=== PATIENT | female | born 1995 | race Caucasian/White ===

== ENCOUNTER 2023-10-06 08:00 | Outpatient (CLI) | payer OTHER ==
[2023-10-06 17:06] LABS: BILIRUBIN,URINE NEGATIVE (NEGATIVE); GLUCOSE, URINE (UA) NEGATIVE (NEGATIVE); KETONES,URINE (UA) NEGATIVE (NEGATIVE); LEUKOCYTE ESTERASE, URINE NEGATIVE (NEGATIVE); NITRITE,URINE NEGATIVE (NEGATIVE); OCCULT BLOOD,URINE NEGATIVE (NEGATIVE); PROTEIN,URINE NEGATIVE (NEGATIVE); UROBILINOGEN,URINE 0.2 (NORMAL) E.U./dL (NORMAL)
[2023-10-06 17:15] LABS: AMORPHOUS SEDIMENT,UR Moderate /LPF; BACTERIA,URINE Moderate /HPF (None Seen); CLARITY,URINE HAZY (CLEAR); RBC,URINE None Seen /HPF (0-5); SQUAMOUS EPITHELIAL CELL,UR FEW Squamous (<= Few); WBC,URINE 0-3 /HPF (0-5)
== END 2023-10-06 23:59 | disposition home or self-care (01) ==
LOC: LAB.WC 08:00
PROVIDERS: ATTEND Obstetrics & Gynecology
DX: Z34.90 Encounter for supervision of normal pregnancy, unspecified, unspecified trimester (principal)
CPT/HCPCS: 81001; 87086

== ENCOUNTER 2023-10-09 15:27 | Outpatient (CLI) | payer OTHER ==
[2023-10-09 17:44] LABS: BASOPHILS % (AUTO) 0.4 %; EOSINOPHILS # (AUTO) 0.3 10^3/uL (0.0-0.7); EOSINOPHILS % (AUTO) 3.9 %; HCT - HEMATOCRIT 40.3 % (37.0-47.0); HGB - HEMOGLOBIN 13.5 g/dL (12.0-16.0); LYMPHOCYTES % (AUTO) 23.7 %; MEAN CORPUSCULAR HEMOGLOBIN 29.5 pg (27.0-31.0); MEAN CORPUSCULAR HGB CONC 33.5 g/dL (32.0-36.0); MEAN PLATELET VOLUME 10.5 fL (7.9-10.8); MONOCYTES # (AUTO) 0.4 10^3/uL (0.0-1.0); MONOCYTES % (AUTO) 4.7 %; NEUTROPHILS # (AUTO) 5.8 10^3/uL (1.5-6.6); NEUTROPHILS % (AUTO) 67.1 %; PLT - PLATELET COUNT 220 10^3/uL (130-450); RED BLOOD COUNT 4.58 10^6/uL (4.20-5.40); RED CELL DISTRIBUTION WIDTH 12.3 % (12.0-15.0); WHITE BLOOD COUNT 8.6 x10^3/uL (4.8-10.8)
[2023-10-11 04:08] LABS: HBsAG SCREEN Negative (Negative); RPR Non Reactive (Non Reactive)
[2023-10-11 09:08] LABS: HIV SCREEN 4TH GENERATION Non Reactive (Non Reactive)
[2023-10-11 11:08] LABS: HCV AB Non Reactive (Non Reactive)
[2023-10-12 14:08] LABS: VARICELLA-ZOSTER AB IGG 289 index (Immune >165)
== END 2023-10-09 15:28 | disposition home or self-care (01) ==
LOC: LAB.N 15:27
PROVIDERS: ATTEND Obstetrics & Gynecology
DX: Z34.90 Encounter for supervision of normal pregnancy, unspecified, unspecified trimester (principal)
CPT/HCPCS: 36415; 85025; 86592; 86762; 86787; 86803; 86850; 86900; 86901; 87340; 87389

== ENCOUNTER 2023-10-11 12:32 | Outpatient (CLI) | payer OTHER ==
--- NOTE | 2023-10-12 11:03 | Ultrasound Report ---
PROCEDURE: OB 1st Trimester INDICATIONS: POSITIVE TEST OUTSIDE/PRIOR DATING DATA: Last menstrual period (LMP): 07/17/2023. LMP-based estimated date of delivery (JAVIER): 04/22/2024. First dating scan (date and location): 10/11/2023, [facility]. TECHNIQUE: Real-time scanning was performed of the fetus and maternal pelvic organs, with image documentation. COMPARISON: None. FINDINGS: There is a dichorionic diamniotic intrauterine gestation. Fetus A Position: Left lateral Heart rate: 158 bpm. Mean gestational sac diameter: 5.40 cm, 12 weeks 2 days Elfers-rump length: 5.61 cm, 12 weeks 1 day Estimated due date based on current scan: April 23, 2024 Fetus A Position: Right lateral Heart rate: 153 bpm. Mean gestational sac diameter: 5.57 cm, 12 weeks 4 days Elfers-rump length: 5.72 cm, 12 weeks and 2 days Estimated due date based on current scan: April 22, 2024 Placenta: Posterior Other: No perigestational fluid collection. Cervix: Closed Measurement variability in dating: +/- 4 weeks by LMP, +/- 7 days by mean sac diameter (use before 6 weeks gestation if crown-rump length not able to be measured), +/- 5 days by crown-rump length (6-12 weeks gestation). Maternal organs: Ovaries are not well seen. IMPRESSION: 1.There is a dichorionic diamniotic intrauterine gestation with 12 weeks and 2 days gestation and est imated due date of April 22, 2024. 2.Bilateral ovaries are not well seen. Reviewed by: Janelle Medina MD on 10/12/2023 11:02 AM PST Approved by: Janelle Medina MD on 10/12/2023 11:02 AM PST Station ID: [id number]
== END 2023-10-11 12:33 | disposition home or self-care (01) ==
LOC: DI 12:32
PROVIDERS: ATTEND Obstetrics & Gynecology
DX: O30.041 Twin pregnancy, dichorionic/diamniotic, first trimester (principal); Z3A.12 12 weeks gestation of pregnancy

== ENCOUNTER 2023-10-14 08:00 | Outpatient (CLI) | payer OTHER ==
[2023-10-14 22:42] LABS: CHLAMYDIA TRACHOMATIS DNA NEGATIVE (NEGATIVE); NEISSERIA GONORRHOEAE DNA NEGATIVE (NEGATIVE); TRICHOMONAS VAGINALIS DNA NEGATIVE (NEGATIVE)
== END 2023-10-14 23:59 | disposition home or self-care (01) ==
LOC: LAB.WC 08:00
PROVIDERS: ATTEND Obstetrics & Gynecology
DX: Z11.3 Encounter for screening for infections with a predominantly sexual mode of transmission (principal)
CPT/HCPCS: 87491; 87591; 87661

== ENCOUNTER 2023-12-08 15:41 | Outpatient (CLI) | payer OTHER | END 2023-12-08 15:42 | disposition home or self-care (01) | LOC: LAB.N 15:41 | PROVIDERS: ATTEND Obstetrics & Gynecology | DX: O09.92 Supervision of high risk pregnancy, unspecified, second trimester (principal); O30.009 Twin pregnancy, unspecified number of placenta and unspecified number of amniotic sacs, unspecified trimester | CPT/HCPCS: 36415; 82950 ==

== ENCOUNTER 2023-12-10 15:59 | Outpatient (CLI) | payer OTHER ==
--- NOTE | 2023-12-11 09:36 | Ultrasound Report ---
PROCEDURE: OB Anatomy Scan INDICATIONS: SUPERVISION OF OUTSIDE/PRIOR DATING DATA: Last menstrual period (LMP): 07/17/2023. LMP-based estimated date of delivery (JAVIER): 04/22/2024. First dating scan (date and location): 10/11/2023. Estimated date of delivery (JAVIER) from first dating scan: 04/22/2024. The below data below was generated using the working JAVIER of 04/22/2024 TECHNIQUE: Real-time scanning was performed of the fetus, with image documentation and biometric measurements. Endovaginal scanning: Not performed. COMPARISON: None. FINDINGS: General: Diamniotic dichorionic viable twin Presentation: Fetus is vertex on maternal left, presenting. Fetus B is vertex, maternal right. Placenta: Placenta is posterior. Placenta B is posterior. Amniotic fluid index: Fetus a 11.4 cm with largest pocket 3.8 cm. Fetus B 13.0 cm, largest pocket 3. 5 cm. heart rate: Fetus A 136 bpm, fetus B 136-143 beats per minute. Maternal cervical canal: Closed and 4.2 cm long; normal length is 2.5 cm or more. Fetus A: biometrics: Biparietal diameter: 4.8 cm, 20 weeks 4 days Head circumference: 19.2 cm, 21 weeks 3 days Abdominal circumference: 15.8 cm, 21 weeks 0 days Femur length: 3.3 cm, 20 weeks 3 days Estimated gestational age from initial scan: 20 weeks 6 days Composite gestational age from present scan: 20 weeks 3 days Estimated weight and percentile: 377 g, 41st percentile Measurement variability in biometric dating: +/- 10 days from 12-20 weeks gestation, +/- 2 weeks from 20-30 weeks gestation, +/- 3 weeks at 30 weeks gestation or later. Anatomic survey: Neuro: Ventricles are normal at less than 10 mm. Cisterna magna is normal at 3-11 mm. Cerebellum i s normal in size and morphology. Nuchal skin fold: Normal at less than 6 mm between 14 and 20 weeks gestational age. Face: Nose and lips, facial profile were not well seen due to position. Spine: No evidence for spina bifida. Heart: 4-chambered heart is present, with normal ventricular outflow tracts. Diaphragm: Diaphragm is intact. Stomach: Left-sided stomach is present. Kidneys: No hydronephrosis. Normal is less than 5 mm in 2nd trimester, less than 7 mm in 3rd trimester. Cord: 3 vessel cord has orthotopic insertion. Bladder: Normal in size. Extremities: All 4 extremities are visualized. Fetus B: biometrics: Biparietal diameter: 4.7 cm, 20 weeks 2 days Head circumference: 18.0 cm, 20 weeks 3 days Abdominal circumference: 15.9 cm, 21 weeks 0 days Femur length: 3.6 cm, 21 weeks 3 days Estimated gestational age from initial scan: 20 weeks 6 days Composite gestational age from present scan: 20 weeks 4 days Estimated weight and percentile: 396 g, 56 percentile Measurement variability in biometric dating: +/- 10 days from 12-20 weeks gestation, +/- 2 weeks from 20-30 weeks gestation, +/- 3 weeks at 30 weeks gestation or later. Anatomic survey: Neuro: Ventricles are normal at less than 10 mm. Cisterna magna is normal at 3-11 mm. Cerebellum i s normal in size and morphology. Nuchal skin fold: Normal at less than 6 mm between 14 and 20 weeks gestational age. Face: Nose and lips, facial profile are normal. Spine: No evidence for spina bifida. Heart: 4-chambered heart is present, with normal ventricular outflow tracts. Diaphragm: Diaphragm is intact. Stomach: Left-sided stomach is present. Kidneys: No hydronephrosis. Normal is less than 5 mm in 2nd trimester, less than 7 mm in 3rd trimester. Cord: 3 vessel cord has orthotopic insertion. Bladder: Normal in size. Extremities: All 4 extremities are visualized. IMPRESSION: Viable diamniotic dizygotic twin . Fetus A: Symmetric growth, and normal amniotic fluid volume. Fetus B: Symmetric growth and normal amniotic fluid volume. Fetus A: Facial features were not well seen due to position. Recommend follow-up. All other janeen shilo appears normal. Fetus B: Normal anatomy. Reviewed by: Mell Arreguin MD on 12/11/2023 9:35 AM PDT Approved by: Mell Arreguin MD on 12/11/2023 9:35 AM PDT Station ID: [id number]
== END 2023-12-10 16:00 | disposition home or self-care (01) ==
LOC: DI 15:59
PROVIDERS: ATTEND Obstetrics & Gynecology
DX: O09.92 Supervision of high risk pregnancy, unspecified, second trimester (principal); O30.042 Twin pregnancy, dichorionic/diamniotic, second trimester

== ENCOUNTER 2024-01-27 14:16 | Outpatient (CLI) | payer OTHER | END 2024-01-27 14:17 | disposition home or self-care (01) | LOC: LAB.N 14:16 | PROVIDERS: ATTEND Obstetrics & Gynecology | DX: O09.92 Supervision of high risk pregnancy, unspecified, second trimester (principal); Z36.89 Encounter for other specified antenatal screening | CPT/HCPCS: 36415; 82950 ==

== ENCOUNTER 2024-02-01 16:02 | Outpatient (CLI) | payer OTHER ==
--- NOTE | 2024-02-02 15:29 | Ultrasound Report ---
PROCEDURE: OB Follow up INDICATIONS: SUPERVISION OF , TWINS OUTSIDE/PRIOR DATING DATA: Last menstrual period (LMP): 07/17/2023. LMP-based estimated date of delivery (JAVIER): 04/22/2024. First dating scan (date and location): 10/11/2023. Estimated date of delivery (JAVIER) from first dating scan: 04/22/2024. The below data below was generated using the clinical/ultrasound JAVIER of 04/22/2024 TECHNIQUE: Real-time scanning was performed of the fetus, with image documentation and biometric measurements. Endovaginal scanning: Not performed. COMPARISON: OB ultrasound 12/10/2023, 10/11/2023 FINDINGS: Dichorionic diamniotic twin identified. Cervical length was not evaluated. Fetus A: General: A living intrauterine gestation is present. Presentation: Vertex Placenta: Placental position is posterior, without previa. Amniotic fluid index: 10.3 cm, 9th percentile for gestational age. Largest pocket 5 cm. heart rate: 133 beats per minute. biometrics: Biparietal diameter: 7.3 cm 29 weeks 2 days 68th percentile Head circumference: 27.7 cm 30 weeks 0 days 75th percentile Abdominal circumference: 24.7 cm 28 weeks 6 days 58 percentile Femur length: 5.4 cm 28 weeks 4 days 38th percentile Estimated gestational age from initial scan: 28 weeks 3 days Composite gestational age from present scan: 29 weeks 2 days Estimated weight and percentile: 1311 g 57th percentile FetusB: General: A living intrauterine gestation is present. Presentation: Vertex Placenta: Placental position is posterior, without previa. Amniotic fluid index: 16.4 cm, 64th percentile for gestational age. Largest pocket 5.4 cm heart rate: 152 beats per minute. biometrics: Biparietal diameter: 7.0 cm 28 weeks 0 days 23rd percentile Head circumference: 26.5 cm 28 weeks 6 days 29th percentile Abdominal circumference: 23.3 cm 27 weeks 4 days 21st percentile Femur length: 5.5 cm 29 weeks 1 day 58th percentile Estimated gestational age from initial scan: 28 weeks 3 days Composite gestational age from present scan: 28 weeks 3 days Estimated weight and percentile: 1206 g 32nd percentile Other: Not applicable. IMPRESSION: Dichorionic diamniotic twin . Gestational age of fetus A is 29 weeks 2 days compared to 28 weeks 3 days of fetus B. Mild asymmetric FAIZA measuring 10.3 cm for fetus A and 16.4 cm of fetus B as above. Continued interval follow-up noting 9th percentile for fetus A. Reviewed by: Juany Ma MD on 02/02/2024 3:28 PM PDT Approved by: Juany Ma MD on 02/02/2024 3:28 PM PDT Station ID: [id number]
== END 2024-02-01 16:03 | disposition home or self-care (01) ==
LOC: DI 16:02
PROVIDERS: ATTEND Obstetrics & Gynecology
DX: O09.93 Supervision of high risk pregnancy, unspecified, third trimester (principal); O30.043 Twin pregnancy, dichorionic/diamniotic, third trimester; Z3A.29 29 weeks gestation of pregnancy

== ENCOUNTER 2024-02-09 16:11 | Outpatient (CLI) | payer OTHER ==
[2024-02-09 21:22] LABS: HCT - HEMATOCRIT 36.3 % (37.0-47.0); HGB - HEMOGLOBIN 12.1 g/dL (12.0-16.0); MEAN CORPUSCULAR HEMOGLOBIN 30.2 pg (27.0-31.0); MEAN CORPUSCULAR HGB CONC 33.3 g/dL (32.0-36.0); MEAN CORPUSCULAR VOLUME 90.5 fL (81.0-99.0); MEAN PLATELET VOLUME 10.5 fL (7.9-10.8); RED BLOOD COUNT 4.01 10^6/uL (4.20-5.40); RED CELL DISTRIBUTION WIDTH 12.9 % (12.0-15.0); WHITE BLOOD COUNT 9.2 x10^3/uL (4.8-10.8)
[2024-02-09 21:41] LABS: CREATININE,URINE 185.9 mg/dL; PROTEIN/CREATININE RATIO,URINE 0.1 (<=0.2)
[2024-02-09 21:43] LABS: ALBUMIN 3.4 g/dL (3.2-5.5); BILIRUBIN,TOTAL 0.3 mg/dL (0.2-1.0); CREATININE 0.6 mg/dL (0.6-1.3); POTASSIUM 3.7 mmol/L (3.5-4.5); TOTAL PROTEIN 6.7 g/dL (6.4-8.9)
== END 2024-02-09 16:12 | disposition home or self-care (01) ==
LOC: LAB.N 16:11
PROVIDERS: ATTEND Obstetrics & Gynecology
DX: O09.92 Supervision of high risk pregnancy, unspecified, second trimester (principal); O30.042 Twin pregnancy, dichorionic/diamniotic, second trimester
CPT/HCPCS: 36415; 80053; 82570; 84156; 85027; 86592

== ENCOUNTER 2024-02-26 19:32 | Outpatient (CLI) | payer OTHER ==
--- NOTE | 2024-02-27 13:24 | Ultrasound Report ---
PROCEDURE: OB Follow up INDICATIONS: TWIN OUTSIDE/PRIOR DATING DATA: Last menstrual period (LMP): 07/17/2023. LMP-based estimated date of delivery (JAVIER): 04/22/2024. The below data below was generated using the clinical JAVIER of 2023 TECHNIQUE: Real-time scanning was performed of the fetuses, with image documentation and biometric measurements. Endovaginal scanning: Performed COMPARISON: 02/01/2024, 12/10/2023 FINDINGS: General: An intrauterine dichorionic-diamniotic twin is present, as evidenced by separate placentas, differing sexes, or an intervening membrane of greater than 2 mm. Cervix not well v isualized. FETUS A: Fetus is in vertex presentation. FAIZA: 12.4 cm. Placental position is posterior, without previa. heart rate: 124 beats per minute. biometrics: Biparietal diameter: 8.5 cm, 34 weeks 2 days, 94th percentile Head circumference: 31.1 cm, 34 weeks 5 days, 84th percentile Abdominal circumference: 26.95 cm, 31 weeks 0 days, 27th percentile Femur length: 5.96 cm, 31 weeks 0 days, 15 percentile. Estimated gestational age from initial scan: 32 weeks 0 days Composite gestational age from present scan: 32 weeks 5 days Estimated weight and percentile: 1811.5 g, 28th percentile Measurement variability in biometric dating: +/- 10 days from 12-20 weeks gestation, +/- 2 weeks from 20-30 weeks gestation, +/- 3 weeks at 30 weeks gestation or later. FETUS B: Fetus is in vertex presentation. FAIZA: 13.6 cm Placental position is posterior without previa. heart rate: 145 beats per minute. biometrics: Biparietal diameter: 8.0 cm, 32 weeks 1 day, 44 percentile Head circumference: 29.9 cm, 33 weeks 1 day, 42nd percentile Abdominal circumference: 26.97 cm, 31 weeks 0 days, 22nd percentile Femur length: 6.46 cm, 33 weeks 2 days, 74th percentile Estimated gestational age from initial scan: 32 weeks 0 days Composite gestational age from present scan: 32 weeks 3 days Estimated weight and percentile: 1894.8 g, 41st percentile Measurement variability in biometric dating: +/- 10 days from 12-20 weeks gestation, +/- 2 weeks from 20-30 weeks gestation, +/- 3 weeks at 30 weeks gestation or later. IMPRESSION: Living dichorionic, diamniotic twin gestation at 32 weeks 0 days, JAVIER of 04/22/2024. Normal FAIZA. Biometrics as above. Reviewed by: Victor Manuel Pena MD on 02/27/2024 1:22 PM PDT Approved by: Victor Manuel Pena MD on 02/27/2024 1:22 PM PDT Station ID: [id number]
== END 2024-02-26 19:33 | disposition home or self-care (01) ==
LOC: DI 19:32
PROVIDERS: ATTEND Obstetrics & Gynecology
DX: O30.043 Twin pregnancy, dichorionic/diamniotic, third trimester (principal); Z3A.32 32 weeks gestation of pregnancy

== ENCOUNTER 2024-03-15 17:05 | Outpatient (CLI) | payer OTHER ==
--- NOTE | 2024-03-16 11:25 | Ultrasound Report ---
PROCEDURE: OB Follow up INDICATIONS: TWIN OUTSIDE/PRIOR DATING DATA: Last menstrual period (LMP): 07/17/2023. LMP-based estimated date of delivery (JAVIER): 04/22/2024. First dating scan (date and location): 10/11/2023. Estimated date of delivery (JAVIER) from first dating scan: 04/22/2024. TECHNIQUE: Real-time scanning was performed of the fetuses, with image documentation and biometric measurements. Endovaginal scanning: Not performed COMPARISON: OB ultrasound 02/26/2024 FINDINGS: General: An intrauterine dichorionic-diamniotic twin is present, as evidenced by separate placentas, differing sexes, or an intervening membrane of greater than 2 mm. Composite amniotic fluid index: 14.7 cm. Maternal cervical canal: Not evaluated FETUS A: Fetus is in vertex presentation. Largest amniotic fluid pocket: 4.5 cm, normal is 2-8 cm. Placental position is posterior, without previa. heart rate: 137 beats per minute. biometrics: Biparietal diameter: 8.9 cm, 36 weeks 1 day, 88th percentile Head circumference: 32.7 cm, 37 weeks 0 days, 77th percentile Abdominal circumference: 29.0 cm, 33 weeks 0 days, 15th percentile Femur length: 6.4 cm, 33 weeks 1 day, 12th percentile Estimated gestational age from initial scan: 34 weeks 4 days Composite gestational age from present scan: 34 weeks 6 days Estimated weight and percentile: 2269 g, 23rd percentile Measurement variability in biometric dating: +/- 10 days from 12-20 weeks gestation, +/- 2 weeks from 20-30 weeks gestation, +/- 3 weeks at 30 weeks gestation or later. FETUS B: Fetus is in vertex presentation. Largest amniotic fluid pocket: 7.0 cm, normal is 2-8 cm. Placental position is posterior without previa. heart rate: 157 beats per minute. biometrics: Biparietal diameter: 8.3 cm, 33 weeks 3 days, 18th percentile Head circumference: 31.1 cm, 34 weeks 6 days, 21st percentile Abdominal circumference: 29.2 cm, 33 weeks 1 day, 18th percentile Femur length: 6.8 cm, 34 weeks 6 days, 49th percentile Estimated gestational age from initial scan: 34 weeks 4 days. Composite gestational age from present scan: 34 weeks 1 day Estimated weight and percentile: 2292 g, 26th percentile Measurement variability in biometric dating: +/- 10 days from 12-20 weeks gestation, +/- 2 weeks from 20-30 weeks gestation, +/- 3 weeks at 30 weeks gestation or later. IMPRESSION: 1.Living dichorionic diamniotic twin at 34 weeks 4 days gestation. 2.Appropriate interval growth. 3.Normal amniotic fluid index. Reviewed by: Bartolo Madrid MD on 03/16/2024 11:24 AM PDT Approved by: Bartolo Madrid MD on 03/16/2024 11:24 AM PDT Station ID: [id number]
== END 2024-03-15 17:06 | disposition home or self-care (01) ==
LOC: DI 17:05
PROVIDERS: ATTEND Obstetrics & Gynecology
DX: O30.043 Twin pregnancy, dichorionic/diamniotic, third trimester (principal); Z3A.34 34 weeks gestation of pregnancy

== ENCOUNTER 2024-03-18 08:00 | Outpatient (CLI) | payer OTHER | END 2024-03-18 23:55 | disposition home or self-care (01) | LOC: LAB.WC 08:00 | PROVIDERS: ATTEND Obstetrics & Gynecology | DX: Z36.85 Encounter for antenatal screening for Streptococcus B (principal) | CPT/HCPCS: 87797 ==

== ENCOUNTER 2024-04-04 14:04 | Outpatient (CLI) | payer OTHER ==
--- NOTE | 2024-04-04 18:31 | Ultrasound Report ---
PROCEDURE: OB Follow up INDICATIONS: TWIN OUTSIDE/PRIOR DATING DATA: Last menstrual period (LMP): 07/17/2023. LMP-based estimated date of delivery (JAVIER): 04/22/2024. First dating scan (date and location): 10/11/2023. Estimated date of delivery (JAVIER) from first dating scan: 04/22/2024. The below data below was generated using the ultrasound JAVIER of 324 TECHNIQUE: Real-time scanning was performed of the fetus, with image documentation and biometric measurements. Endovaginal scanning: Not performed. COMPARISON: Several prior studies, the most recent from 03/15/2024 FINDINGS: General: A living twin dichorionic diamniotic intrauterine gestation is present. Maternal cervical canal: Not well seen Fetus A: Presentation: Vertex Placenta: Placental position is posterior, without previa. Largest amniotic fluid pocket 3.3 cm, within normal limits for gestational age. heart rate: 129 beats per minute. biometrics: Biparietal diameter: 9.3 cm, 37 weeks 5 days, 77th percentile Head circumference: 32.6 cm, 37 weeks 0 days, 18th percentile Abdominal circumference: 32.8 cm, 36 weeks 5 days, 45th percentile Femur length: 7.0 cm, 36 weeks 0 days, 18th percentile Estimated gestational age from initial scan: 37 weeks 3 days Composite gestational age from present scan: 36 weeks 6 days Estimated weight and percentile: 3009 g, 39th percentile Measurement variability in biometric dating: +/- 10 days from 12-20 weeks gestation, +/- 2 weeks from 20-30 weeks gestation, +/- 3 weeks at 30 weeks gestation or more. Fetus B: Presentation: Vertex Placenta: Placental position is posterior, without previa. Largest amniotic fluid pocket 2.7 cm, at the low end of normal for gestational age. heart rate: 145 beats per minute. biometrics: Biparietal diameter: 8.5 cm, 34 weeks 1 day, 2nd percentile Head circumference: 31.4 cm, 35 weeks 2 days, 2nd percentile Abdominal circumference: 32.6 cm, 36 weeks 0 days, 25th percentile Femur length: 7.1 cm, 36 weeks 4 days, 29th percentile Estimated gestational age from initial scan: 37 weeks 3 days Composite gestational age from present scan: 35 weeks 4 days Estimated weight and percentile: 2783 g, 20th percentile Measurement variability in biometric dating: +/- 10 days from 12-20 weeks gestation, +/- 2 weeks from 20-30 weeks gestation, +/- 3 weeks at 30 weeks gestation or more. Other: Not applicable. IMPRESSION: Living twin intrauterine . Estimated weight of fetus A 39 percentile. Estimated weight of fetus B 20th percentile. Composite amniotic fluid volume within normal limits. Reviewed by: Mell Arreguin MD on 04/04/2024 6:30 PM PDT Approved by: Mell Arreguin MD on 04/04/2024 6:30 PM PDT Station ID: [id number]
--- NOTE | 2024-04-04 18:33 | Ultrasound Report ---
PROCEDURE: OB Follow up INDICATIONS: Twin OUTSIDE/PRIOR DATING DATA: Last menstrual period (LMP): . LMP-based estimated date of delivery (JAVIER): . First dating scan (date and location): . Estimated date of delivery (JAVIER) from first dating scan: . The below data below was generated using the JAVIER of TECHNIQUE: Real-time scanning was performed of the fetus, with image documentation and biometric measurements. Endovaginal scanning: Not performed. COMPARISON: None. FINDINGS: General: A living twin dichorionic diamniotic intrauterine gestation is present. Maternal cervical canal: Not well seen Fetus A: Presentation: Vertex Placenta: Placental position is posterior, without previa. Largest amniotic fluid pocket 3.3 cm, within normal limits for gestational age. heart rate: 129 beats per minute. biometrics: Biparietal diameter: 9.3 cm, 37 weeks 5 days, 77th percentile Head circumference: 32.6 cm, 37 weeks 0 days, 18th percentile Abdominal circumference: 32.8 cm, 36 weeks 5 days, 45th percentile Femur length: 7.0 cm, 36 weeks 0 days, 18th percentile Estimated gestational age from initial scan: 37 weeks 3 days Composite gestational age from present scan: 36 weeks 6 days Estimated weight and percentile: 3009 g, 39th percentile Measurement variability in biometric dating: +/- 10 days from 12-20 weeks gestation, +/- 2 weeks from 20-30 weeks gestation, +/- 3 weeks at 30 weeks gestation or more. Fetus B: Presentation: Vertex Placenta: Placental position is posterior, without previa. Largest amniotic fluid pocket 2.7 cm, at the low end of normal for gestational age. heart rate: 145 beats per minute. biometrics: Biparietal diameter: 8.5 cm, 34 weeks 1 day, 2nd percentile Head circumference: 31.4 cm, 35 weeks 2 days, 2nd percentile Abdominal circumference: 32.6 cm, 36 weeks 0 days, 25th percentile Femur length: 7.1 cm, 36 weeks 4 days, 29th percentile Estimated gestational age from initial scan: 37 weeks 3 days Composite gestational age from present scan: 35 weeks 4 days Estimated weight and percentile: 2783 g, 20th percentile Measurement variability in biometric dating: +/- 10 days from 12-20 weeks gestation, +/- 2 weeks from 20-30 weeks gestation, +/- 3 weeks at 30 weeks gestation or more. Other: Not applicable. IMPRESSION: Living twin intrauterine . Estimated weight of fetus A 39 percentile. Estimated weight of fetus B 20th percentile. Composite amniotic fluid volume within normal limits. Reviewed by: Mell Arreguin MD on 04/04/2024 6:31 PM PDT Approved by: Mell Arreguin MD on 04/04/2024 6:31 PM PDT Station ID: [id number]
== END 2024-04-04 14:05 | disposition home or self-care (01) ==
LOC: DI 14:04
PROVIDERS: ATTEND Obstetrics & Gynecology
DX: O30.003 Twin pregnancy, unspecified number of placenta and unspecified number of amniotic sacs, third trimester (principal); Z3A.35 35 weeks gestation of pregnancy; Z3A.36 36 weeks gestation of pregnancy

== ENCOUNTER 2024-04-11 07:42 | Inpatient (IN) | payer OTHER ==
[2024-04-11] MEDS ORDERED: TERBUTALINE 1 MG/ML VIAL SUBQ PRN (09:03)
[2024-04-11] MEDS ORDERED: miSOPROStoL 200 MCG TABLET PR PRN (09:03)
[2024-04-11] MEDS ORDERED: SODIUM CHLORIDE FLUSH 0.9% 10 ML SYRINGE IVP PRN (09:03)
[2024-04-11] MEDS ORDERED: NIFEdipine 10 MG CAPSULE PO PRN (09:03)
[2024-04-11] MEDS ORDERED: ONDANSETRON ODT 4 MG TABLET PO PRN (09:03)
[2024-04-11] MEDS ORDERED: CALCIUM CARBONATE CHEW 500 MG TABLET PO PRN (09:03)
[2024-04-11] MEDS ORDERED: LACTATED RINGERS 1,000 ML IV PRN (09:03)
[2024-04-11] MEDS ORDERED: lidocaine 1% 20 ML MDV ID PRN (09:03)
[2024-04-11] MEDS ORDERED: OXYTOCIN 10 UNIT/ML VIAL IM PRN (09:03)
[2024-04-11] MEDS ORDERED: hydrALAZINE INJ 20 MG/ML VIAL IVP PRN ×2 (09:03)
[2024-04-11] MEDS ORDERED: AMPICILLIN 2 GM in SODIUM CHLORIDE 0.9% MINIBAG 100 ML IV ONE (09:03)
[2024-04-11] MEDS ORDERED: LABETALOL 20 MG/4 ML SYRINGE IVP PRN ×3 (09:03)
[2024-04-11 09:12] LABS: BASOPHILS # (AUTO) 0.1 10^3/uL (0.0-0.1); BASOPHILS % (AUTO) 0.7 %; EOSINOPHILS # (AUTO) 0.1 10^3/uL (0.0-0.7); EOSINOPHILS % (AUTO) 1.4 %; HCT - HEMATOCRIT 33.1 % (37.0-47.0); HGB - HEMOGLOBIN 10.7 g/dL (12.0-16.0); LYMPHOCYTES # (AUTO) 1.6 10^3/uL (1.5-3.5); LYMPHOCYTES % (AUTO) 21.2 %; MEAN CORPUSCULAR HEMOGLOBIN 27.4 pg (27.0-31.0); MEAN CORPUSCULAR HGB CONC 32.3 g/dL (32.0-36.0); MEAN CORPUSCULAR VOLUME 84.7 fL (81.0-99.0); MEAN PLATELET VOLUME 12.5 fL (7.9-10.8); MONOCYTES # (AUTO) 0.5 10^3/uL (0.0-1.0); MONOCYTES % (AUTO) 6.6 %; NEUTROPHILS # (AUTO) 5.3 10^3/uL (1.5-6.6); NEUTROPHILS % (AUTO) 69.6 %; PLT - PLATELET COUNT 137 10^3/uL (130-450); RED BLOOD COUNT 3.91 10^6/uL (4.20-5.40); RED CELL DISTRIBUTION WIDTH 13.2 % (12.0-15.0); WHITE BLOOD COUNT 7.7 x10^3/uL (4.8-10.8)
[2024-04-11] MEDS: SODIUM CHLORIDE FLUSH 0.9% 10 ML SYRINGE IVP SCH (09:15)
[2024-04-11 10:08] LABS: ALBUMIN 3.2 g/dL (3.2-5.5); BILIRUBIN,TOTAL 0.3 mg/dL (0.2-1.0); CALCIUM 9.6 mg/dL (8.5-10.3); CREATININE 0.7 mg/dL (0.6-1.3); POTASSIUM 3.9 mmol/L (3.5-4.5); TOTAL PROTEIN 6.3 g/dL (6.4-8.9)
[2024-04-11] MEDS: miSOPROStoL 100 MCG TABLET VG SCH (10:09)
--- NOTE | 2024-04-11 11:15 | HISTORY & PHYSICAL EXAMINATION ---
Admit History - Smoking Status: Never smoker - Other Maternal History Other Maternal History: HPI: Makenzie is a 29yo at 38w3d presenting for induction of labor for di/di twin . She is feeling well. Having occasional jesus pat contractions, nothing regular. Denies VB, LOF. + FM. Last growth US 04/05/24: Twin A vertex 3009g, 39%tile, Twin B vertex 2783g, 20%tile. monitoring form copied from chart: LMP: 07/17/23 JAVIER by LMP: 04/22/24 US:10/11/2023 @ 12W2D c/w LMP (US 04/23/2024) Final JAVIER: 04/22/2024 PROBLEMS: DI DI twins -Counselled on increased risk of delivery, preeclampsia, delivery, growth discordance -Encouraged vitamin/mineral supplementation in -Will need surveillance at 34 weeks. Delivery by 38 weeks. -Folic acid 1mg, 2500 mg, ASA -Early 1-hour GTT normal. Repeat ordered. -Monthly Growth monthly growth scans -Most recent ultrasound on 03/15 showed baby A: 2269 g, the 23rd percentile, baby B 2292 g, 26nd percentile. HSV: Prophylaxis at 36 weeks. Prescription sent Twins (prepregnancy BMI: 26) --Weight gain: 31-50 lbs Pre- Weight:169.0 BMI: 26.56 Blood type: O+ Antibody: negative CBC: PLT 220 HCT 40.3 HGB 13.5 RUB: immune VZV:Immune HBsAg: negative HepC: N-R RPR/AB-EIA: N-R HIV: negative PAP: 11/12/22 - normal per pt GC/CT:10/14 negative HSV:genital HSV 1 Genetic testing: Flu:2022 COVID: J&J 2020, Booster 2020, Virus 03/2022 FAS: WNL Placenta: both posterior Cord: both 3VC FAIZA: both WNL EFW: A: 377g 41%ile; B: 396g 56%ile 50gm OGCT: 76 TDAP:6/5 Breast Pump:6/ RPR- Non reactive 3rd trimester H/H PLT- 12.1/36.3 plt 212 GBS: negative Delivery plan:Induction at 38 weeks if not in labor Contraception:Partner vasectomy Medical Hx: H/o genital HSV1 Surgical Hx [place] teeth RN FIRST ASSIST Hx: Social Hx: No alcohol, tobacco, drug use Family Hx: noncontributory Allergies: NKDA Meds: acyclovir, baby aspirin, famotidine, folic acid, tums, PNV PE: Gen NAD Chest non labored respirations Abd gravid, non tender Ext trace LE edema, no evidence of DVT [employer]: no visible external lesions SVE: - On presentation, 50/-2, moderate, mid position - Exam repeated at 6pm, 70/-2, cephalic Bedside US: vertex/vertex presentation monitoring: FHTs: - Twin A: 130s bpm baseline, + accel, - decel, mod variability - Twin B: 130s bpm baseline, + accel, - decel, mod variability [place]: q 1-4 min A/P: 29 yo presenting for IOL with: - dichorionic diamniotic twin - GBS neg - Rh+ - Rubella immune - Varicella immune - IOL consents were signed in clinic on 04/06/[address] Aquino - She is s/p misoprostol x 2 doses. We discussed another dose of misoprostol vs placement of cervical ripening balloon overnight, she would prefer to continue misoprostol. Will reassess before next dose. - We reviewed plan for delivery in the OR. We have discussed in detail possibilities at time of delivery if baby B is cephalic vs non-cephalic. We have discussed possible external cephalic version, internal podalic version/breech extraction in the setting that twin B in non-cephalic. She would strongly like to avoid delivery for Twin B and consents to breech extraction if necessary. - Pain management per patient request. Epidural strongly encouraged. Sunshine Rivera MD - HPI Current EDU 04/22/24 Gestation 38 Weeks and 3 Days 1 Vital Signs Temperature 98.4 F 04/11/24 08:00 Heart Rate 81 04/11/24 08:00 Respiratory Rate 20 04/11/24 08:00 Temperature 98.4 F 04/11/24 08:00 Heart Rate 81 04/11/24 08:00 Respiratory Rate 20 04/11/24 08:00 Blood Pressure O2 Saturation If not protocol: Oxygen Flow, liters/minute Meds/Allgy - Allergies Allergies/Adverse Reactions: Allergies Allergy/AdvReac Type Severity Reaction Status Date / Time No Known Drug Allergies Allergy Verified 04/11/24 07:49 Physical - Abdominal Exam Vital Signs: Temp Pulse Resp BP Pulse Ox O2 Flow Rate 98.4 F 81 20 04/11/24 08:00 04/11/24 08:00 04/11/24 08:00 Plan for Labor - Plan For Labor I expect patient to be DC'd or transferred within 96 hours.: Yes
[2024-04-11] MEDS ORDERED: AMPICILLIN 1 GM in SODIUM CHLORIDE 0.9% MINIBAG 100 ML IV SCH (14:00)
--- NOTE | 2024-04-11 22:28 | ANESTHESIA ---
Pre-Anesthesia VS, & Labs - Diagnosis [id number] presenting for IOL for twins - Procedure Placement of labbor epidural when patient desires Vital Signs: Temp Pulse Resp BP Pulse Ox O2 Flow Rate 36.8 C 77 19 139/75 H 04/11/24 15:15 04/11/24 15:15 04/11/24 15:15 04/11/24 15:15 Height: 5 ft 7 in Weight (kg): 93.621 kg Body Mass Index: 32.3 BMI Classification: Obese - NPO Other (currently not npo, will be on clears when epidural is placed) - Is Patient ?: Yes - Lab Results Current Lab Results: Laboratory Tests 04/11/24 09:45: Sodium 135, Potassium 3.9, Chloride 105, Carbon Dioxide 23, Anion Gap 7.0, BUN 12, Creatinine 0.7, Estimated GFR (MDRD) 99, Glucose 85, Calc ium 9.6, Total Bilirubin 0.3, AST 18, ALT 8 L, Alkaline Phosphatase 216 H, Total Protein 6.3 L, Albumin 3.2, Globulin 3.1, Albumin/Globulin Ratio 1.0 04/11/24 08:45: WBC 7.7, RBC 3.91 L, Hgb 10.7 L, Hct 33.1 L, MCV 84.7, MCH 27.4, MCHC 32.3, RDW 13.2, Plt Count 137, MPV 12.5 H, Neut # (Auto) 5.3, Lymph # (Auto) 1.6, [place] # (Auto) 0.5, Eos # (Auto) 0.1, Baso # (Auto) 0.1, Absolute Nucleated RBC 0.00, Nucleated RBC % 0.0 04/11/24 08:45: Blood Type O POSITIVE, Antibody Screen NEGATIVE Fish Bones: 04/11/24 08:45 04/11/24 09:45 Home Medications and Allergies Active Medications Acetaminophen (Acetaminophen 500 Mg Tablet) 1,000 mg PO Q8HR PRN PRN Reason: Mild Pain or Fever>38C(100.4F) Calcium Carbonate/Glycine (Calcium Carbonate Chew 500 Mg Tablet) 1,000 mg PO Q6HR PRN PRN Reason: Heartburn Carboprost Tromethamine (Carboprost Tromethamine 250 Mcg/Ml Vial) 250 mcg IM .ONCE PRN PRN Reason: Hemorrhage Fentanyl (Fentanyl 100 Mcg/2 Ml Vial) 50 mcg IVP Q1H PRN PRN Reason: Severe Pain (score 7-10) Hydralazine HCl (Hydralazine Inj 20 Mg/Ml Vial) 10 mg IVP .ONCE PRN; Protocol PRN Reason: SBP> or= 160 OR DBP> or= 110 Hydralazine HCl (Hydralazine Inj 20 Mg/Ml Vial) 5 - 10 mg IVP Q20M PRN; Protocol PRN Reason: SBP> or= 160 OR DBP> or= 110 Lactated Ringer's (Lr) 500 mls @ 999 mls/hr IV PRN PRN PRN Reason: Abdominal Pain Oxytocin/Sodium Chloride (Pitocin/Sodium Chloride) 500 mls @ 999 mls/hr IV PRN PRN; Protocol PRN Reason: POST- HEMORR PREVENTION Tranexamic Acid (Tranexamic 1,000 Mg/100ml-Nacl) 1,000 mg in 100 mls @ 600 mls/hr IV Q30M PRN PRN Reason: EBL >1200mL and within 3hr Labetalol HCl (Labetalol 20 Mg/4 Ml Syringe) 20 mg IVP .ONCE PRN; Protocol PRN Reason: SBP> or= 160 OR DBP> or= 110 Labetalol HCl (Labetalol 20 Mg/4 Ml Syringe) 20 - 80 mg IVP Q10M PRN; Protocol PRN Reason: SBP> or= 160 OR DBP> or= 110 Labetalol HCl (Labetalol 20 Mg/4 Ml Syringe) 20 - 40 mg IVP Q10M PRN; Protocol PRN Reason: SBP> or= 160 OR DBP> or= 110 Lidocaine HCl (Lidocaine 1% 20 Ml Mdv) 20 ml ID .ONCE PRN PRN Reason: PERINEAL REPAIR Stop: 04/14/24 09:03 Methylergonovine Maleate (Methylergonovine 0.2 Mg/Ml Vial) 0.2 mg IM .ONCE PRN PRN Reason: Hemorrhage Misoprostol (Misoprostol 200 Mcg Tablet) 600 mcg BC .ONCE PRN PRN Reason: Hemorrhage Misoprostol (Misoprostol 200 Mcg Tablet) 800 mcg AK .ONCE PRN PRN Reason: Hemorrhage Misoprostol (Misoprostol 100 Mcg Tablet) 25 mcg VG Q4H GLADIS Last Admin: 04/11/24 17:59 Dose: 25 mcg Nifedipine (Nifedipine 10 Mg Capsule) 10 - 20 mg PO Q20M PRN; Protocol PRN Reason: SBP> or= 160 OR DBP> or= 110 Ondansetron HCl (Ondansetron Odt 4 Mg Tablet) 4 mg PO Q4HR PRN PRN Reason: Nausea / Vomiting Ondansetron HCl (Ondansetron 4 Mg/2 Ml Vial) 4 mg IVP PRN PRN PRN Reason: Nausea / Vomiting Oxytocin (Oxytocin 10 Unit/Ml Vial) 10 unit IM .ONCE PRN PRN Reason: Step One if no IV access. Sodium Chloride (Sodium Chloride Flush 0.9% 10 Ml Syringe) 10 ml IVP Q8H GLADIS Sodium Chloride (Sodium Chloride Flush 0.9% 10 Ml Syringe) 10 ml IVP PRN PRN PRN Reason: NEEDED PER PROVIDER ORDERS Terbutaline Sulfate (Terbutaline 1 Mg/Ml Vial) 0.25 mg SUBQ .ONCE PRN PRN Reason: Tachystole Allergies/Adverse Reactions: Allergies Allergy/AdvReac Type Severity Reaction Status Date / Time No Known Drug Allergies Allergy Verified 04/11/24 07:49 Anes History & Medical History - Anesthetic History Anesthesia Complications: reports: No previous complications - Medical History Cardiovascular: reports: None Pulmonary: reports: None Gastrointestinal: reports: None Urinary: reports: None Neuro: reports: None Musculoskeletal: reports: None Endocrine/Autoimmune: reports: None Smoking Status: Never smoker Psychosocial: reports: No issues indicated Exam General: Alert, Oriented x3, Cooperative Dental: WNL Mouth Openin Fingerbreadth Neck Mobility: Normal Mallampati classification: II Thyromental Distance: 4-6 cm Respiratory: Lungs clear Cardiovascular: Regular rate Plan Anesthesia Type: Epidural Consent for Procedure(s) Verified and Reviewed: Yes Code Status: Attempt Resuscitation ASA classification: 1-Healthy patient Is this case an emergency?: No
[2024-04-12] MEDS: ACETAMINOPHEN 500 MG TABLET PO PRN (03:48)
[2024-04-12] MEDS: LACTATED RINGERS 1,000 ML IV SCH (08:29)
[2024-04-12] MEDS: OXYTOCIN/SODIUM CHLORIDE 500 ML IV SCH (08:29)
[2024-04-12] MEDS: CYCLOBENZAPRINE 10 MG TABLET PO PRN (08:47)
--- NOTE | 2024-04-12 11:07 | PROVIDER PROGRESS NOTE ---
Labor Progress Note - Labor Progress Note Labor Progress Note/Additional Text: S: Received flexeril for back pain, it did help. Now starting to feel more discomfort with contractions. Discusses AROM and she did agree to proceed. O: VS reviewed. SVE: /-1, AROM performed with clear fluid FHTs: - Twin A: 120s, mod variability, + accel - decel, mod variability - Twin B: 130s, mod variability, + accel, - decel, mod variability [place]: every 2-4 min A/P: Progressing in early labor, now s/p AROM. Continue pitocin. May get epidural anytime. Sunshine Rivera MD
[2024-04-12] MEDS ORDERED: ROPIVACAINE 0.2% 200 MG/100 ML BAG EP ONE ×2 (11:24→19:24)
[2024-04-12] MEDS ORDERED: LIDOCAINE 2%-EPI 1:100000 20 ML MDV ONE ×2 (11:24→12:44)
[2024-04-12] MEDS ORDERED: NALBUPHINE 10 MG/ML AMP IVP PRN (12:32)
[2024-04-12] MEDS ORDERED: ROPIVACAINE 0.2% 200 MG/100 ML BAG EP PRN (12:32)
[2024-04-12] MEDS ORDERED: NALOXONE 0.4 MG/ML VIAL IVP PRN (12:32)
[2024-04-12] MEDS ORDERED: METOCLOPRAMIDE 10 MG/2 ML VIAL IVP PRN (12:32)
[2024-04-12] MEDS ORDERED: ePHEDrine 50 MG/ML VIAL IVP PRN (12:32)
[2024-04-12] MEDS ORDERED: diphenhydrAMINE INJ 50 MG/ML VIAL IVP PRN (12:32)
[2024-04-12] MEDS ORDERED: LIDOCAINE-PF 2% 10 ML AMP SUBQ ONE (12:37)
[2024-04-12] MEDS: fentaNYL 100 MCG/2 ML VIAL IVP PRN (12:43)
[2024-04-12] MEDS: ONDANSETRON 4 MG/2 ML VIAL IVP PRN (13:12)
--- NOTE | 2024-04-12 13:25 | ANESTHESIA PROCEDURE NOTE ---
Anesthesia Epidural Template - Patient Report Patient Reports: positive: Inadequate control - Exam : - Plan Plan: positive: Other (Discussed options with patient. (removal/replacement, continue with current, remove). Patient elects for replacement after explaining the sensory evaluation. Pt to sitting, epidural removed, tip intact. Back prepped and draped again. 3cc Lido 1% at site (L4-5). 17tu to 7cm SERGIO. 25ga spinal DP) - Other Comments Other Comments: 17tu to 7cm SERGIO. +CSF with 25ga DP. Cath threaded to 12cm. -test dose with 5cc 2%lido with epi. Pt states changes in sensation after 3 mins. Secured and taped with tegaderm. Pump set to 10cc continuous with 4cc PCEA [id number] as needed. Pt to supine, states B LE very numb and contraction pain is now gone. Discussed expectations for pain, PCEA, and bed rest with arias and clear liquid diet until delivery.
--- NOTE | 2024-04-12 14:40 | PHARMACY PROGRESS NOTE ---
- Best Possible Medication History Admit Date and Time: 04/11/24 0903 Processed by: Pharmacy Medications reviewed in ED?: Yes Medication History completed: Yes Patient Interview: Pt unable to participate Secondary Source(s): Pharmacy records, Insurance records As the person ultimately responsible for medication therapy, providers are able to order a medication from an existing home medication list in [facility] via the "Reconcile Routine" prior to Confirmation of that medication by ict support technicians. Such practice is discouraged except when the physician, in their clinical judgment, deems that a medical need exists for a medication without regard to previous use.
--- NOTE | 2024-04-12 19:01 | PROVIDER PROGRESS NOTE ---
Labor Progress Note - Labor Progress Note Labor Progress Note/Additional Text: S: Patient feeling intermittent pressure. Overall comfortable with epidural. O: VS reviewed SVE: complete, + 2 station. FHTs: - Twin A: FTS 140s bpm baseline, + accel, - decel, mod variability - Twin B: FHTs 130s bpm baseline, + accel, possible small variable decelerations, mod variability [place]: q 1-2 min FHTs cat 2 for Twin B, cat 1 for Twin A, overall reassuring. A/P: Plan to move to OR for delivery. OR team will be available in case of need for conversion to delivery. Sunshine Rivera MD
[2024-04-12] MEDS: CARBOPROST TROMETHAMINE 250 MCG/ML VIAL IM PRN (19:59)
[2024-04-12] MEDS: TRANEXAMIC ACID IN NACL 1,000 MG/100 ML BAG IV PRN (20:05)
[2024-04-12] MEDS: miSOPROStoL 200 MCG TABLET BC PRN (20:09)
[2024-04-12] MEDS: METHYLERGONOVINE 0.2 MG/ML VIAL IM PRN (20:10)
[2024-04-12] MEDS ORDERED: TRANEXAMIC ACID 1,000 MG/10 ML VIAL ONE (20:12)
[2024-04-12] MEDS: OXYTOCIN/SODIUM CHLORIDE 500 ML IV PRN (20:15)
--- NOTE | 2024-04-12 20:47 | DELIVERY NOTE ---
Delivery Note - Labor Labor: positive: Other (IOL with misoprostol followed by pitocin and AROM.) - Delivery Method Infant Delivery Method: positive: Spontaneous vaginal delivery - Presentation Presentation: positive: Other (Twin A vertex, Twin B vertex) - Nuchal Cord Nuchal Cord: positive: Present (Twin B) - Anesthetic Anesthetic Type: - Amniotic Fluid Description Amniotic Fluid Description: positive: Clear - Laceration Laceration: positive: 1st degree, Labial (Bilateral) - Suture Suture Type: positive: Other (None.) - Delivery Outcome Delivery Outcome: positive: Livebirth - Placenta Placenta: positive: Intact, Expressed - Estimated Blood Loss Estimated Blood Loss (in cc): 600 - Delivery Comments (Free Text/Narrative) Delivery Comments (Free Text/Narrative): Delivery in detail: The patient was taken to the OR for pushing and delivery given twin . Andreas had excellent pushing efforts. After delivery of the head, the anterior shoulder of twin A delivered easily with maternal effort and gentle downward pressure followed by the remainder of the body. The was placed on the mother's abdomen. After 60 sec the cord was clamped times two and cut. Cord blood collected. Cephalic presentation of Twin B was noted and verified with US by Dr. Aquino. The head was allowed to descend into the pelvis with the next several contractions. Once the head was engaged, AROM with clear fluid was performed. Gia again pushed with excellent effort with quick descent of twin B. After delivery of the the head, the anterior shoulder delivered easily with maternal effort and gentle downward pressure followed by the remainder of the body. The infant was placed on the mother's abdomen and the cord clamped and cut after 60 seconds. Cord blood obtained. The pitocin rate was increased. The placentas were delivered intact. Intermittent atony was noted and she was given IM hemabate. Bimanual massage was performed with removal of clots. The bladder was drained with a straight catheter. Continued intermittent atony was noted and she also received IV TXA, 600mcg buccal misoprostol, and IM methergine. The cervix was inspected for lacerations and noted to be hemostatic. Bleeding improved and good uterine tone was achieved. She was not ed to have bilateral labial lacerations and a small first degree tear which were hemostatic and not repaired. Perineal hemostasis noted at completion of procedure. EBL 600cc. Sunshine Rivera MD
[2024-04-12] MEDS ORDERED: LOPERAMIDE 2 MG CAPSULE PO ONE (20:51)
[2024-04-12] MEDS: LOPERAMIDE 2 MG CAPSULE PO SCH (20:54)
[2024-04-12] MEDS ORDERED: WITCH HAZEL/GLYCERIN 1 PAD TOP PRN (21:09)
[2024-04-12] MEDS ORDERED: ZOLPIDEM 5 MG TABLET PO PRN (21:09)
[2024-04-12] MEDS ORDERED: LACTATED RINGERS 1,000 ML IV SCH (22:00)
[2024-04-12] MEDS: IBUPROFEN 600 MG TABLET PO SCH (22:28)
[2024-04-13] MEDS: ONDANSETRON 4 MG/2 ML VIAL IVP PRN (03:04)
[2024-04-13] MEDS: SODIUM CHLORIDE 0.9% 500 ML IV ONE (09:00)
[2024-04-13] MEDS ORDERED: DOCUSATE SODIUM 100 MG CAPSULE PO SCH (09:00)
--- NOTE | 2024-04-13 09:25 | PROVIDER PROGRESS NOTE ---
Subjective - Subjective Subjective: Subjective Patient reports she is doing well. Lochia appropriate. Denies heavy bleeding. Ambulating. Pelvic and abdominal pain well-controlled. Tolerating oral intake. Diet: Regular. Voiding without difficulty. Passing flatus. Denies BM. Patient is bonding with baby's in room Breast feeding going well. Partner went home to get her breast pump to try pumping as well. Denies feeling lightheaded, dizzy or excessively fatigued. Objective General: Alert, oriented, no apparent distress. Cardiovascular: Regular rate. Regular rhythm. Lungs: No increased work of breathing. Abdomen: Uterus firm. Below umbilicus. No guarding or rebound. Extremities: No pain on palpation. No cords palpated. Distal pulses intact. Assessment and Plan day 1. -Routine care -Anticipate discharge tomorrow Headache -Will try conservative management today. If still bothersome this afternoon, will consider blood patch for spinal headache. -Repeat blood work unremarkable for significant hemorrhage. -Can consider orthostatic vitals if this becomes more problematic. Objective - Vital Signs/Intake & Output Vital Signs: Vital Signs x48h Temp Pulse Resp BP Pulse Ox 04/13/24 03:01 98.2 F 105 H 129/71 95 04/13/24 02:00 98.2 F 94 20 141/87 H 97 Intake & Output: Intake & Output 04/10/24 04/11/24 04/12/24 04/13/24 23:59 23:59 23:59 23:59 Intake Total 3070.733 400.1 Output Total 1030 650 Balance 2040.733 -249.9 - Lab Results Fish Bones: 04/13/24 05:39 04/11/24 09:45 Other Labs: Lab Results x24hrs 04/13/24 Range/Units 05:39 Hgb 11.3 L (12.0-16.0) g/dL
--- NOTE | 2024-04-13 10:00 | ANESTHESIA PROCEDURE NOTE ---
Diagnosis: PDPH s/sx Procedure: epidural blood patch Consent for Procedure(s) Verified and Reviewed: Yes Height and Weight: Height 5 ft 7 in Weight (kg) 93.621 kg Body Mass Index 32.3 Vital Signs: Temp Pulse Resp BP Pulse Ox O2 Flow Rate 36.8 C 105 H 20 129/71 95 04/13/24 03:01 04/13/24 03:01 04/13/24 02:00 04/13/24 03:01 04/13/24 03:01 Allergies No Known Drug Allergies Allergy (Verified 04/11/24 07:49) Requesting Provider: Miles Location: [id number] ASA classification: 2-Mild systemic disease Is this case an emergency?: No Anes. Monitoring and Equipment: Non-invasive BP, Pulse oximetery, Sterile prep and drape Anes. Procedure Start Time: 09:32 Anes. Procedure Stop Time: 09:50 Procedure Notes: Sitting for procedure after discussion about PDPH and blood patch. Consent signed. Sterile prep/drape. Lido 1% 3cc at L4-5. Attempt x1 SERGIO 17tu at 7cm, slow return of what appears to be pink tinged CSF for 5-10 seconds. Gentle flow eventually stopped. 20cc autologous blood drawn from R FA per RN. 20 cc slowly injected in entirety as pt denied feelings of discomfort or pressure. Pt states HAAS already feels better in sitting position. Needle out, no bleeding, to supine with pillows under knees. Advised to maintain neutral supine position for 1-2 hours then no lifting/straining x48 hours. Will follow up with patient to evaluate effectiveness.
[2024-04-13] MEDS: oxyCODONE 5 MG TABLET PO PRN (12:24)
[2024-04-14 05:41] VITALS: O2SAT 98
--- NOTE | 2024-04-14 08:44 | Discharge Plan ---
Discharge Plan Problem Reviewed?: Yes Disposition: Home, Self Care Condition: Good Diet: Regular Activity Restrictions: Additional Comments Instruction Topics: Vaginal After, Depression No Smoking: If you smoke, Please STOP! Call for help. Follow-up with: Antonio Aquino MD [Provider Admit Priv/Credential] -
--- NOTE | 2024-04-14 08:53 | DISCHARGE SUMMARY ---
Discharge Summary Admit Date: 04/11/24 Discharge Date: 04/14/24 Discharging Provider: Antonio Aquino MD Code Status: Attempt Resuscitation Condition at Discharge: Good Discharge Disposition: 01 Home, Self Care - DIAGNOSES Admission Diagnoses: Induction of labor Dichorionic, diamniotic twins 38 weeks gestation Discharge Diagnoses with Status of Each Condition: Delivery of twin gestation Status post spontaneous vaginal delivery - HPI History of Present Illness: Subjective Patient reports she is doing well. Lochia appropriate. Denies heavy bleeding. Ambulating. Pelvic and abdominal pain well-controlled. Tolerating oral intake. Diet: Regular. Voiding without difficulty. Passing flatus. Denies BM. Patient is bonding with baby's in room. May room in tonight if baby is not ready to go home. Breast feeding going well. Supplementing with formula Denies feeling lightheaded, dizzy or excessively fatigued. Blood patch yesterday resolved headache. Objective General: Alert, oriented, no apparent distress. Cardiovascular: Regular rate. Regular rhythm. Lungs: No increased work of breathing. Abdomen: Uterus firm. Below umbilicus. No guarding or rebound. Extremities: No pain on palpation. No cords palpated. Distal pulses intact. - HOSPITAL COURSE Hospital Course: Patient was a 29-year-old G1 who presented at 38 weeks gestation for induction of labor. Induction was uncomplicated and delivery was performed the operating room, however both twins delivered vaginally without significant complication. She did have intermittent atony and required multiple uterotonic's, but no significant hemorrhage. course was unremarkable and she was disch arged on day 2. - ALLERGIES Allergies/Adverse Reactions: Allergies Allergy/AdvReac Type Severity Reaction Status Date / Time No Known Drug Allergies Allergy Verified 04/11/24 07:49 - MEDICATIONS Home Medications: Ambulatory Orders Medication Instructions Recorded Confirmed Acyclovir 400 mg PO TID 04/12/24 04/12/24 Aspirin [Coffee Aspirin EC] 81 mg PO DAILY 04/12/24 04/12/24 Calcium Carbonate [Calcium] 600 mg PO DAILY 04/12/24 04/12/24 Famotidine [Acid-Pep] 20 mg PO BID 04/12/24 04/12/24 Folic Acid 1 mg PO DAILY 04/12/24 04/12/24 Pnv No.95/Ferrous Fum/Folic AC 1 each PO DAILY 04/12/24 04/12/24 [ Tablet] - LABS Result Diagrams: 04/13/24 05:39 04/11/24 09:45 - FOLLOW UP Follow Up: With [facility] in 1 week - TIME SPENT Time Spent in Discharge (Minutes): 20
--- NOTE | 2024-04-14 08:59 | Discharge Plan ---
Discharge Plan Problem Reviewed?: Yes Disposition: Home, Self Care Condition: Good Activity Restrictions: Additional Comments Instruction Topics: Vaginal After, Depression No Smoking: If you smoke, Please STOP! Call for help. Follow-up with: Antonio Aquino MD [Provider Admit Priv/Credential] -
[2024-04-14 09:37] VITALS: BP 124/80
--- NOTE | 2024-04-14 17:35 | Labor Flowsheet ---
Labor Flowsheet Datetime Report Generated by CPN: 04/14/2024 17:35 Datetime: 04/13/2024 08:00 Stage of : Datetime: 04/12/2024 18:57 Patient Care Comments: to OR per FBP bed, planned Twin delivery in the OR Datetime: 04/12/2024 18:45 VITAL SIGNS NBP Sys/Deidre/Mean (mmHg): 140 : 72 : 87 Pulse: 78 LaborFlag: Labor Datetime: 04/12/2024 18:44 ASSESSMENT A Monitor Mode: Telemetry FHR Baseline Rate : 135 FHR Baseline Changes: No Baseline Change Variability: Moderate 6-25 bpm Accelerations: 15X15 Decelerations: None Category: Category I ASSESSMENT B Monitor Mode: Telemetry FHR Baseline Rate : 135 FHR Baseline Changes: No Baseline Change Variability: Moderate 6-25 bpm Accelerations: 15X15 Decelerations: None Category: Category I PATIENT CARE Oxygen Method: Room Air Datetime: 04/12/2024 18:32 VAGINAL EXAM Dilatation (cm): 10.0 Effacement (%): 100 Station: -1 Exam by: Dr Rivera Cervix, Consistency: Soft Cervix, Position: Anterior Datetime: 04/12/2024 18:15 UTERINE ACTIVITY Monitor Mode: External Frequency (min): 2-3 Quality: Moderate Duration (sec): 70-100 Pattern: Normal: <= 5 Contractions in 10 Minutes Resting Tone (Palpate): Relaxed Datetime: 04/12/2024 18:01 PAIN Pain Scale: 3 Pain Presence: Intermittent Pain Type: Pressure Pain Location: Perineum Pain Relief Measures: Epidural Given Pain Coping: Talking Through Contractions Pain Assessment Comments: pressure Datetime: 04/12/2024 17:34 Comments: RN @ bedside adjusting monitor COMMUNICATION Communication: RN at Bedside Datetime: 04/12/2024 17:00 Patient Position/Activity: Right Tilt Comfort Measures: Breathing/Relaxation Datetime: 04/12/2024 16:34 Temperature (C): 37.0 Datetime: 04/12/2024 16:30 Pain Goal: 4 Anesthesia Level Check: T9 Datetime: 04/12/2024 15:01 ANESTHESIA Anesthesia Plans: Epidural Datetime: 04/12/2024 14:05 I/O Interventions: Doyle Cath Inserted Datetime: 04/12/2024 13:30 Contraction Comments: unable to assess d/t pt. 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 Datetime: 04/12/2024 12:52 PROCEDURE TIME OUT Procedure Verify: Correct Patient Identity; Correct Side and Site are Marked; Accurate Procedure Co nsent Form; Agreement on Procedure to be Done; Correct Patient Position Datetime: 04/12/2024 11:01 Consults: Anesthesia Datetime: 04/12/2024 10:14 Monitor Interventions for UA: [place] Adjusted TEACHING Instructional Method: Verbal Plan of Care: Vaginal Delivery; Induction Unit Routine: Monitoring Datetime: 04/12/2024 10:02 Membrane Status: Ruptured Membranes Rupture Method: Artificial Amniotic Fluid Color: Clear Amniotic Fluid Amount: Moderate Amniotic Fluid Odor: Normal Datetime: 04/12/2024 09:32 MATERNAL ASSESSMENT Level of Consciousness: Alert Headache: Denies Nausea/Vomiting: Denies RUQ Epigastric Pain: Denies Datetime: 04/12/2024 09:02 Pitocin Checklist: At Least 1 Acceleration of 15 bpm x 15 Seconds in 30 Minutes or Adequate Variabi lity Datetime: 04/12/2024 09:00 MEDICATIONS Pitocin (milliunits): Increased to @ 4 Datetime: 04/12/2024 07:30 Vaginal Bleeding: Normal Show Datetime: 04/12/2024 03:48 Analgesics/Sedatives: Tylenol (mg) @ 1000 Datetime: 04/12/2024 02:59 Cervical Ripening Agents: Cytotec @ Datetime: 04/11/2024 17:59 Medication Comments: vag Datetime: 04/11/2024 17:49 Communication Comments: Dr. Avalos discussing delivery with both parents Datetime: 04/11/2024 16:41 Membranes Ruptured Date/Time: 04/12/2024 09:00
== END 2024-04-14 17:32 | disposition home or self-care (01) | DRG 806 ==
LOC: WFO 07:42 → FBP 07:45 → WFO 09:02 → FBP 09:03
PROVIDERS: ADMIT Obstetrics & Gynecology; ATTEND Obstetrics & Gynecology
PROC: 3E0P7VZ Introduction of Hormone into Female Reproductive, Via Natural or Artificial Opening (ICD-10-PCS; 2024-04-11)
PROC: 10907ZC Drainage of Amniotic Fluid, Therapeutic from Products of Conception, Via Natural or Artificial Opening (ICD-10-PCS; principal; 2024-04-12)
PROC: 10E0XZZ Delivery of Products of Conception, External Approach (ICD-10-PCS; 2024-04-12)
DX: O30.043 Twin pregnancy, dichorionic/diamniotic, third trimester (principal); O98.32 Other infections with a predominantly sexual mode of transmission complicating childbirth; Z37.2 Twins, both liveborn; O62.2 Other uterine inertia; O70.0 First degree perineal laceration during delivery; A60.09 Herpesviral infection of other urogenital tract; Z3A.38 38 weeks gestation of pregnancy
CPT/HCPCS: 36415; 59409; 80053; 85018; 85025; 86850; 86900; 86901; A9270; J2210; J7120